=== PATIENT | female | born 1965 | race Caucasian/White ===

== ENCOUNTER 2019-06-16 16:15 | Emergency (ER) | payer OTHER, SELFPAY ==
[2019-06-16 16:35] VITALS: BP 164/118; PULSE 75; RESP 17; TEMP 36.7; O2SAT 95; BMI 48.2
--- NOTE | 2019-06-16 16:48 | ED_ITS ---
Entered by Sil Barrera, acting as scribe for Edgar Nelson MD, [facility] [place] Jun 16, 2019 16:15 HPI - Neuro Symptoms/Deficit General: Chief Complaint: Neuro Symptoms/Deficit Stated Complaint: NUMB RIGHT FACE Time Seen by Provider: 06/16/19 16:47 Source: patient Mode of arrival: wheelchair Limitations: no limitations History of Present Illness: HPI Narrative: 54 yo Female presents to ED with complaint of right side numbness and blurred vision. Pt states that she has had eye problems for a couple of days. Pt states at about 1430 today she could only see out of the left side and on the right side she could only see squiggly lines. Pt states that she now has some numbness around her right eye. Pt states that she took an aspirin right away. Pt states that she has been sick and taking Zpak and steroids. Pt states that she took her last doses of both medications yesterday. Pt states that she has still had some coughing and congestion. Onset (ago): day(s) Location: right face History of same: No Severity: mild Quality: numb Relieving factors: time Exacerbating factors: none Context: gradual onset On Anticoagulants: No Associated symptoms: Reports chest pain, cough, headache(s) and short of breath; Deny fevers/chills, nausea or vomiting Treatments Prior to Arrival: Aspirin Review of Systems General: Reports: 10 or more systems reviewed and unremarkable except in HPI and below Const: Denies: fever, chills or body aches Eyes: Reports: blurry vision; Denies: change in vision or blind spots ENMT: Denies: throat pain, enlarged tonsils, painful swallowing, hoarseness, mouth pain or swelling of lips/tongue Card: Reports: chest pain Resp: Denies: shortness of breath, productive cough or non-productive cough GI: Denies: abdominal pain, nausea or vomiting : Denies: flank pain, difficulty urinating, painful urination, urinary frequency, urinary urgency or urinary hesitancy Musc: Reports: extremity pain (left shoulder), joint pain (left shoulder) and limited range of motion; Denies: neck pain, back pain or extremity swelling Skin/Breast: Denies: rash, itching or redness Neuro: Reports: headache; Denies: numbness in extremities or weakness in extremities Endo: Denies: excessive urination, excessive thirst or tired all the time PFSH ED PFSH: Statuses (acute, chronic, etc) shown below reflect problem list status as previously entered and may not be historically accurate Social History Smoking and tobacco status: never smoked Alcohol intake: current Alcohol intake frequency: holidays/special occasions only NIH stroke score NIHSS: Level Of Consciousness - 1a: 0 Level Of Consciousness Questions - 1b: Both Correct Level Of Consciousness Commands - 1c: Both Correct Best Gaze - 2: Normal Visual Lutz - 3: No Visual Loss Facial Palsy - 4: Normal Motor Arm Right - 5: No Drift Motor Arm Left - 5: No Drift Motor Leg Right - 6: No Drift Motor Leg Left - 6: No Drift Limb Ataxia - 7: Absent Sensory - 8: Mild To Moderate Loss Best Language - 9: No Aphasia Dysarthia - 10: Normal Extinction And Inattention - 11: 0 Score: Total Score: 1 Physical Exam Const: COMMON NORMALS: no apparent distress, average body habitus, oriented x3, no limitations, healthy appearing, alert and well nourished HENMT: COMMON NORMALS: normocephalic, head/scalp atraumatic and moist oral mucous membranes HEAD & SCALP: normocephalic and atraumatic Eye: COMMON NORMALS: PERRL, EOMs intact bilaterally, conjunctivae normal and no scleral icterus CONJUNCTIVA: Yes conjunctivae normal PUPIL: Yes PERRL Neck/C-Spine: COMMON NORMALS: full ROM, supple, no meningeal signs, no JVD and no carotid bruits Chest: COMMONS NORMALS: inspection of chest normal and palpation of chest normal Resp: COMMON NORMALS: normal respiratory effort, no retractions, no use of accessory muscles, clear to auscultation bilaterally and percussion normal AUSCULTATION: clear to auscultation bilaterally PERCUSSION: percussion normal Cardio: COMMON NORMALS: no JVD, regular rate, regular rhythm, S1 normal heart sound, S2 normal heart sound, no gallops, no clicks, no murmurs, no rub and peripheral pulses 2+ throughout RATE: regular rate RHYTHM: regular rhythm HEART SOUNDS: S1 normal and S2 normal PERIPHERAL PULSES: pulses 2+ throughout GI: COMMON NORMALS: normal to inspection, nondistended, normoactive bowel sounds, soft to palpation, non-tender, no hepatosplenomegaly, no masses and no bruits PALPATION: Yes soft and Yes no hepatosplenomegaly : COMMON NORMALS: Yes no CVA tenderness BLADDER/KIDNEY EXAM: Yes no CVA tenderness Back/Pelvis: COMMON NORMALS: no CVA tenderness Extremity: COMMON NORMALS: normal to inspection, full ROM, normal capillary refill, no calf tenderness and no pedal edema Neuro: COMMON NORMALS: oriented x3 SENSORIUM/ORIENTATION: Yes alert MENINGEAL SIGNS: Yes no meningeal signs Skin: COMMON NORMALS: no rashes or lesions noted, no wounds, skin turgor normal, no jaundice, no petechiae and no mottling GENERAL SKIN EXAM: no rashes or lesions noted and turgor normal Course Vital Signs: Vital signs: Vital Signs Temperature 98.1 F 06/16/19 16:35 Pulse Rate 75 06/16/19 16:35 Respiratory Rate 17 06/16/19 16:35 Blood Pressure 164/118 06/16/19 16:35 Pulse Oximetry 95 06/16/19 16:35 MDM - Neuro Symptoms/Deficit MDM Narrative: Medical decision making narrative: 54-year-old female patient who presented with left-sided facial numbness. She had a headache at the time. NIH score was 1. Low. No indication for TPA. Examination is not suggestive of a CVA. Head CT negative. Labs unremarkable. Symptoms resolved with resolution of her headache. She is discharged home with no further management. She is to follow-up with her primary care provider. Lab Data: Labs: Lab Results 06/16/19 06/16/19 06/16/19 Range/Units 16:54 16:59 16:59 WBC 12.4 H (4.0-10.0) 10^3/ uL RBC 5.26 (4.1-5.3) 10^6/u L Hgb 14.4 (11.5-15.3) g/dL Hct 46.0 (37.0-47.0) % MCV 87.5 (81-99) fL MCH 27.4 L (28.0-34.0) pg MCHC 31.3 (30.0-36.0) g/dL RDW 14.6 (12.1-15.1) % Plt Count 336 (130-400) 10^3/c mm MPV 8.9 (7.4-10.4) fL Neut % (Auto) 64.9 % Lymph % (Auto) 24.8 % [place] % (Auto) 7.1 % Eos % (Auto) 1.6 % Baso % (Auto) 0.5 % Neut # (Auto) 8.1 H (1.8-7.7) 10^3/u L Lymph # (Auto) 3.1 (0.8-4.8) 10^3/u L [place] # (Auto) 0.9 (0.2-0.9) 10^3/u L Eos # (Auto) 0.2 (0.0-0.8) 10^3/u L Baso # (Auto) 0.1 (0.0-0.1) 10^3/u L Nucleated RBC % (a uto) 0 % Nucleated RBCs # 0.0 /100WBC PT 12.90 (10.5-13.3) SECO NDS INR 0.94 (0.8-1.2) APTT 27.6 (23.9-36.7) SECO NDS Sodium (136-145) mmol/L Potassium (3.5-5.1) mmol/L Chloride (98-107) mmol/L Carbon Dioxide (22-29) mmol/L Anion Gap (5-19) BUN (6-20) mg/dL Creatinine (0.5-0.9) mg/dL GFR Calculation (90-130) mL/min Glucose (74-109) mg/dL POC Glucose 101 (70-110) mg/dL Calcium (8.5-10.5) mg/dL Total Bilirubin (0.15-1.2) mg/dL AST (0-32) U/L ALT (0-33) U/L Alkaline Phosphata se (35-105) IU/L Total Protein (6.6-8.7) g/dL Albumin (3.5-5.2) g/dL Globulin (1.3-4.6) g/dL Urine Color (Yellow) Urine Appearance (CLEAR) Urine pH (5-7) Ur Specific Gravit y (1.005-1.030) Urine Protein (Negative) Urine Glucose (UA) (Normal) Urine Ketones (Negative) Urine Occult Blood (Negative) Urine Nitrate (Negative) Urine Bilirubin (NEGATIVE) Urine Urobilinogen (Negative) mg/dL Ur Leukocyte Farzana ase (Negative) Urine Opiates Scre en (Negative) ng/mL Ur Barbiturates Sc reen (Negative) ng/mL Ur Phencyclidine S crn (Negative) ng/mL Ur Amphetamines Sc reen (Negative) ng/mL U Benzodiazepines Scrn (Negative) ng/mL Urine Cocaine Scre en (Negative) ng/mL U Marijuana (THC) Screen (Negative) ng/mL 06/16/19 06/16/19 06/16/19 Range/Units 16:59 18:06 18:06 WBC (4.0-10.0) 10^3/ uL RBC (4.1-5.3) 10^6/u L Hgb (11.5-15.3) g/dL Hct (37.0-47.0) % MCV (81-99) fL MCH (28.0-34.0) pg MCHC (30.0-36.0) g/dL RDW (12.1-15.1) % Plt Count (130-400) 10^3/c mm MPV (7.4-10.4) fL Neut % (Auto) % Lymph % (Auto) % [place] % (Auto) % Eos % (Auto) % Baso % (Auto) % Neut # (Auto) (1.8-7.7) 10^3/u L Lymph # (Auto) (0.8-4.8) 10^3/u L [place] # (Auto) (0.2-0.9) 10^3/u L Eos # (Auto) (0.0-0.8) 10^3/u L Baso # (Auto) (0.0-0.1) 10^3/u L Nucleated RBC % (a uto) % Nucleated RBCs # /100WBC PT (10.5-13.3) SECO NDS INR (0.8-1.2) APTT (23.9-36.7) SECO NDS Sodium 142 (136-145) mmol/L Potassium 4.0 (3.5-5.1) mmol/L Chloride 103 (98-107) mmol/L Carbon Dioxide 28 (22-29) mmol/L Anion Gap 15.0 (5-19) BUN 17 (6-20) mg/dL Creatinine 0.8 (0.5-0.9) mg/dL GFR Calculation 75.0 L (90-130) mL/min Glucose 104 (74-109) mg/dL POC Glucose (70-110) mg/dL Calcium 9.7 (8.5-10.5) mg/dL Total Bilirubin 0.2 (0.15-1.2) mg/dL AST 18 (0-32) U/L ALT 25 (0-33) U/L Alkaline Phosphata se 89 (35-105) IU/L Total Protein 7.8 (6.6-8.7) g/dL Albumin 4.3 (3.5-5.2) g/dL Globulin 3.5 (1.3-4.6) g/dL Urine Color Yellow (Yellow) Urine Appearance Clear (CLEAR) Urine pH 5 (5-7) Ur Specific Gravit y 1.020 (1.005-1.030) Urine Protein Neg (Negative) Urine Glucose (UA) Norm (Normal) Urine Ketones Negative (Negative) Urine Occult Blood Neg (Negative) Urine Nitrate Negative (Negative) Urine Bilirubin Neg (NEGATIVE) Urine Urobilinogen Norm (Negative) mg/dL Ur Leukocyte Farzana ase Negative (Negative) Urine Opiates Scre en Negative (Negative) ng/mL Ur Barbiturates Sc reen Negative (Negative) ng/mL Ur Phencyclidine S crn Negative (Negative) ng/mL Ur Amphetamines Sc reen Negative (Negative) ng/mL U Benzodiazepines Scrn Negative (Negative) ng/mL Urine Cocaine Scre en Negative (Negative) ng/mL U Marijuana (THC) Screen Negative (Negative) ng/mL Imaging Data^: CT Head: Radiologist's impression: [address] [place] [address] CT Scan Report Signed Patient: Silvana Jacques #: [id number] : 1965Acct#:[id number] Age/Sex: 54 / FADM Date: 06/16/19 Loc: ERRoom/Bed: Attending Dr: Ordering Provider/Ordering MD: Edgar Nelson MD, [facility] [place] Date of Service: 06/16/19 Procedure(s): CT head wo con* [id number] Accession Number(s): [id number] Report Number: [id number] PROCEDURE INFORMATION: Exam: CT Head Without Contrast Exam date and time: 06/16/2019 4:48 PM Age: 54 years old Clinical indication: Numbness / parasthesia; Right; Patient HX: RT orbit numbness; Additional info: Facial numbness TECHNIQUE: Imaging protocol: Computed tomography of the head without contrast. Total DLP: 760.7 mGy-cm Radiation optimization: All CT scans at this facility use at least one of these dose optimization techniques: automated exposure control; mA and/or kV adjustment per patient size (includes targeted exams where dose is matched to clinical indication); or iterative reconstruction. Other technique: STROKE PROTOCOL was implemented. COMPARISON: CT head wo con* [id number] 02/22/2018 7:39 AM FINDINGS: Brain: There is no evidence of infarct, lopez-white matter differentiation is preserved. There is no hemorrhage or extra-axial collection. There is no mass. Ventricles: There is no hydrocephalus. Bones/joints: Unremarkable. No acute fracture. Sinuses: There is minimal mucosal thickening in the sinuses. No air-fluid levels. Mastoid air cells: Visualized mastoid air cells are well aerated. Soft tissues: Unremarkable. CT/CT head wo con* [id number] IMPRESSION: No intracranial lesion or injury. No change from prior scan. ASSESSMENT: ASPECTS (Kylee Stroke Program Early CT Score) is 10 Radiation Dose CTDIVOL = (mGy): DLP = 760.7 (mGy-cm) Dictated By:Werner Cox MD Signed By:Werner Cox MDSigned Date/Time:06/16/191658 DD/ 57 EKG Data^: EKG 1: Attestation: I personally reviewed and interpreted this EKG as follows: EKG interpretation date: 06/16/19 EKG interpretation time: 17:35 Prior EKG tracings: not available for review Interpretation: Normal sinus rhythm. Heart rate 67. Left ventricular hypertrophy. No ST changes Discharge Plan Discharge Patient Disposition: Home, Self-Care Clinical Impression: Facial paresthesia Migraine Qualifiers: Migraine type: unspecified Status migrainosus presence: without status migrainosus Intractability: not intractable Qualified Code(s): G43.909 - Migraine, unspecified, not intractable, without status migrainosus Condition: Stable Prescriptions: Continued metoprolol tartrate 100 mg tablet 100 mg PO BID RF: 0 pantoprazole 40 mg tablet,delayed release (DR/EC) 40 mg PO DAILY RF: 0 Symbicort 80-4.5 mcg/actuation HFA aerosol inhaler 2 puff INHALATION BID PRN (Reason: Shortness Of Breath) RF: 0 alprazolam [Xanax] 0.25 mg tablet 0.25 mg PO DAILY PRN (Reason: anxiety) RF: 0 fluticasone propionate [Flonase Allergy Relief] 50 mcg/actuation spray,suspension 1 spray INTRANASAL QDAY PRN (Reason: Nasal Congestion) RF: 0 albuterol sulfate [ProAir HFA] 90 mcg/actuation HFA aerosol inhaler 2 puff INHALATION Q6H PRN (Reason: shortness of breath or wheezing) Qty: 8.5 RF: 0 aspirin 81 mg Tablet,Chewable 81 mg PO DAILY RF: 0 Discharge Orders: Discharge Order (Routine); Ordered 06/16/19 Ordered By: Edgar Nelson Referrals: Silverio Lala DO [Primary Care Provider] - 1-3 days Discharge Diet: Usual diet Discharge Activity: Resume usual activity Patient Instructions: Migraine Headache (ED), Paresthesia (ED) Activity Restrictions/Additional Instructions: Return for any new or worsening symptoms. Follow-up with your primary care provider within 3 days. Drink plenty of fluids to keep well-hydrated. Coding Level of Care Code ED [facility] Runner for Chg Fwd Exam Problem Focused The documentation recorded by the Bruce perez Carmen, accurately reflects the service I personally performed and the decisions made by Omar ndiaye Adegoke I, MD, [facility] [place] Jun 16, 2019 16:15
--- NOTE | 2019-06-16 17:02 | ECG_ITS ---
Measurements Intervals [place] Rate: 67 P: 24 [place]: 199 QRS: -11 QRSD: 87 T: 20 QT: 382 QTc: 403 SINUS RHYTHM VOLTAGE CRITERIA FOR LVH [MEETS CRITERIA IN ONE OF: R(aVL), S(V1), R(V5), R (V5/V6)+S(V1)] POSSIBLE ANTERIOR MYOCARDIAL INFARCTION , OF INDETERMINATE AGE [30 ms Q WAVE IN V3/V4, OR R < 0.2 mV IN V4] INFERIOR MYOCARDIAL INFARCTION , PROBABLY OLD [40+ ms Q WAVE AND/OR ST/T ABNORMALITY IN II/aVF] Compared to ECG 08/21/2018 03:34:27 No significant changes Electronically Signed On 06-17-2019 16:20:58 RESTAURANT INSPECTOR by Willian Sagastume M.D. [email or web address]
[2019-06-16 17:13] LABS: Basophils # 0.1 10^3/uL (0.0-0.1); Basophils % 0.5 %; Eosinophils # 0.2 10^3/uL (0.0-0.8); Eosinophils % 1.6 %; Hemoglobin 14.4 g/dL (11.5-15.3); Lymphocytes # 3.1 10^3/uL (0.8-4.8); Lymphocytes % 24.8 %; Mean Corpuscular HGB Conc 31.3 g/dL (30.0-36.0); Mean Corpuscular Hemoglobin 27.4 pg (28.0-34.0); Mean Corpuscular Volume 87.5 fL (81-99); Mean Platelet Volume 8.9 fL (7.4-10.4); Monocytes # 0.9 10^3/uL (0.2-0.9); Monocytes % 7.1 %; Neutrophils # 8.1 10^3/uL (1.8-7.7); Neutrophils % 64.9 %; Nucleated Red Blood Cells % 0 %; Platelet Count 336 10^3/cmm (130-400); Red Blood Count 5.26 10^6/uL (4.1-5.3); Red Cell Distribution Width 14.6 % (12.1-15.1); White Blood Count 12.4 10^3/uL (4.0-10.0)
[2019-06-16 17:30] LABS: INR 0.94 (0.8-1.2)
[2019-06-16 17:31] LABS: Partial Thromboplastin Time 27.6 SECONDS (23.9-36.7)
[2019-06-16 17:34] LABS: Alanine Aminotransferase 25 U/L (0-33); Albumin Level 4.3 g/dL (3.5-5.2); Alkaline Phosphatase 89 IU/L (35-105); Aspartate Amino Transferase 18 U/L (0-32); Blood Urea Nitrogen 17 mg/dL (6-20); Calcium 9.7 mg/dL (8.5-10.5); Carbon Dioxide 28 mmol/L (22-29); Chloride 103 mmol/L (98-107); Globulin 3.5 g/dL (1.3-4.6); Glucose 104 mg/dL (74-109); Sodium 142 mmol/L (136-145); Total Bilirubin 0.2 mg/dL (0.15-1.2); Total Protein 7.8 g/dL (6.6-8.7)
[2019-06-16 18:14] LABS: Glucose Point of Care 101 mg/dL (70-110)
[2019-06-16 18:16] LABS: Add Urine Microscopic? NO
[2019-06-16 18:21] LABS: Urine Appearance Clear (CLEAR); Urine Color Yellow (Yellow); pH Urine 5 (5-7)
[2019-06-16 18:22] LABS: Bilirubin Urine Neg (NEGATIVE); Blood Urine Neg (Negative); Glucose Urine UA Norm (Normal); Ketones Urine Negative (Negative); Leukocyte Esterase Urine Negative (Negative); Nitrate Urine Negative (Negative); Protein Urine Neg (Negative); Urobilinogen Urine Norm (Negative)
[2019-06-16 18:59] LABS: Amphetamines Screen Urine Negative (Negative); Barbiturates Screen Urine Negative (Negative); Benzodiazepines Screen Urine Negative (Negative); Cocaine Screen Urine Negative (Negative); Opiate Screen Urine Negative (Negative); PCP Screen Urine Negative (Negative); THC Screen Urine Negative (Negative)
[2019-06-16 19:30] VITALS: BP 147/91; PULSE 77; RESP 20; O2SAT 96
[2019-06-16 21:45] VITALS: BP 147/91; PULSE 77; RESP 20; O2SAT 96
== END 2019-06-16 21:35 | disposition home or self-care (01) ==
PROVIDERS: Emergency Provider Family Medicine; Family Provider Electrodiagnostic Medicine; PCP Electrodiagnostic Medicine
DX: R20.2 Paresthesia of skin (principal); G43.909 Migraine, unspecified, not intractable, without status migrainosus; Z79.82 Long term (current) use of aspirin
CPT/HCPCS: 36416; 70450; 80053; 80307; 81003; 82962; 85025; 85610; 85730; 93005; 99283; A9270

== ENCOUNTER 2019-06-21 17:51 | Emergency (ER) | payer OTHER, SELFPAY ==
[2019-06-21 17:58] VITALS: BP 188/116; PULSE 78; RESP 16; TEMP 36.8; O2SAT 97; BMI 48.6
--- NOTE | 2019-06-21 18:02 | XR_ITS ---
WS: [id number] PORTABLE CHEST HISTORY: Chest pain and pressure for one day. COMPARISON: 06/14/2018 Benign granuloma LEFT upper lobe. Lungs are clear. Normal vasculature. No pleural effusion or pneumot horax. Cardiac size: Normal. Mediastinum/Aorta: Normal mediastinum. No osseous abnormality seen. XR/XR chest 1V portable [id number] IMPRESSION: Unremarkable portable chest.
--- NOTE | 2019-06-21 18:02 | ECG_ITS ---
Measurements Intervals [place] Rate: 90 P: 29 [place]: 183 QRS: -24 QRSD: 91 T: 43 QT: 330 QTc: 405 SINUS RHYTHM BORDERLINE LEFT AXIS DEVIATION [QRS AXIS < -20] VOLTAGE CRITERIA FOR LVH [MEETS CRITERIA IN ONE OF: R(aVL), S(V1), R(V5), R(V5/V6) +S(V1)] Compared to ECG 06/16/2019 17:35:07 Myocardial infarct finding no longer present Electronically Signed On 06-22-2019 16:29:05 WAITER/WAITRESS HEAD by Carlyle Guerin M.D. [email or web address]
[2019-06-21 18:52] LABS: Basophils # 0.1 10^3/uL (0.0-0.1); Basophils % 0.7 %; Eosinophils # 0.3 10^3/uL (0.0-0.8); Eosinophils % 3.3 %; Hematocrit 45.8 % (37.0-47.0); Hemoglobin 14.4 g/dL (11.5-15.3); Lymphocytes # 2.5 10^3/uL (0.8-4.8); Lymphocytes % 29.8 %; Mean Corpuscular HGB Conc 31.4 g/dL (30.0-36.0); Mean Corpuscular Hemoglobin 27.6 pg (28.0-34.0); Mean Corpuscular Volume 87.7 fL (81-99); Mean Platelet Volume 9.1 fL (7.4-10.4); Monocytes # 0.6 10^3/uL (0.2-0.9); Monocytes % 6.6 %; Neutrophils % 58.9 %; Nucleated Red Blood Cells % 0 %; Platelet Count 308 10^3/cmm (130-400); Red Blood Count 5.22 10^6/uL (4.1-5.3); Red Cell Distribution Width 14.6 % (12.1-15.1); White Blood Count 8.5 10^3/uL (4.0-10.0)
[2019-06-21 18:59] LABS: Alanine Aminotransferase 19 U/L (0-33); Albumin Level 4.5 g/dL (3.5-5.2); Alkaline Phosphatase 87 IU/L (35-105); Anion Gap 13.6 (5-19); Aspartate Amino Transferase 15 U/L (0-32); Blood Urea Nitrogen 10 mg/dL (6-20); Calcium 10.2 mg/dL (8.5-10.5); Carbon Dioxide 29 mmol/L (22-29); Chloride 100 mmol/L (98-107); Globulin 3.1 g/dL (1.3-4.6); Glomerular Filtration Rate 87.5 mL/min (90-130); Glucose 107 mg/dL (65-115); Potassium 4.6 mmol/L (3.5-5.1); Sodium 138 mmol/L (136-145); Total Bilirubin 0.2 mg/dL (0.15-1.2); Total Protein 7.6 g/dL (6.6-8.7); Troponin(5th) Baseline 7 ng/mL (0-10)
--- NOTE | 2019-06-21 19:22 | ED_ITS ---
Entered by Rosa Maria Spain, acting as scribe for Joan Hays MD Jun 21, 2019 17:51 HPI - Chest Pain General: Chief Complaint: Chest Pain Stated Complaint: chest pressure Time Seen by Provider: 06/21/19 19:14 Source: patient Mode of arrival: ambulatory History of Present Illness: HPI narrative: 54 y/o female presents to the ED with complaint of chest pressure. Pt states this episode began around 1400 today but she has had intermittent episodes since Wednesday. Pt states she was seen by Dr. Francis and he sent her here for a cardiac workup. Pt denies cardiac hx. MD complaint: chest pain Timing of current episode: episodic Prior episodes: Yes Pain location: epigastric Severity: mild Quality: heaviness Associated symptoms: Deny abdominal pain, dyspnea, fever(s), nausea or vomiting Review of Systems Const: Denies: fever, chills, body aches or change in appetite Eyes: Denies: blurry vision or eye discomfort ENMT: Denies: throat pain or dental pain Card: Reports: chest pain (pressure) Resp: Denies: shortness of breath GI: Reports: heartburn/indigestion; Denies: abdominal pain, nausea, vomiting or diarrhea : Denies: painful urination Musc: Denies: neck pain or back pain Skin/Breast: Denies: rash Neuro: Denies: headache Psych: Denies: depression Singh/Lymph: Denies: easy bruising All/Imm: Denies: hives PFSH ED PFSH: Statuses (acute, chronic, etc) shown below reflect problem list status as previously entered and may not be historically accurate Social History Smoking and tobacco status: never smoked Alcohol intake: current Alcohol intake frequency: holidays/special occasions only Physical Exam Const: COMMON NORMALS: no apparent distress and oriented x3 GENERAL APPEARANCE: cooperative NUTRITIONAL APPEARANCE: obese HENMT: COMMON NORMALS: normocephalic and head/scalp atraumatic HEAD & SCALP: normocephalic and atraumatic Eye: COMMON NORMALS: PERRL and EOMs intact bilaterally PUPIL: Yes PERRL Neck/C-Spine: COMMON NORMALS: full ROM and supple Chest: COMMONS NORMALS: inspection of chest normal and palpation of chest normal Resp: COMMON NORMALS: normal respiratory effort, no retractions, no use of accessory muscles and clear to auscultation bilaterally AUSCULTATION: clear to auscultation bilaterally Cardio: COMMON NORMALS: regular rate, regular rhythm and no murmurs RATE: regular rate RHYTHM: regular rhythm GI: COMMON NORMALS: normal to inspection, nondistended, normoactive bowel sounds, soft to palpation, non-tender and no masses PALPATION: Yes soft Extremity: COMMON NORMALS: normal to inspection and full ROM Neuro: COMMON NORMALS: oriented x3, moves all extremities and no focal motor deficits Psych: COMMON NORMALS: mental status grossly normal, thought process normal and cooperative THOUGHT PROCESS: normal thought process Skin: COMMON NORMALS: no rashes or lesions noted and no wounds GENERAL SKIN EXAM: no rashes or lesions noted Course Vital Signs: Vital signs: Vital Signs Temperature 97.8 F 06/21/19 19:32 Pulse Rate 83 06/21/19 22:00 Respiratory Rate 21 H 06/21/19 22:00 Blood Pressure 145/98 06/21/19 22:00 Pulse Oximetry 95 06/21/19 22:00 MDM - Chest Pain MDM Narrative: Medical decision making narrative: Patient presents here with chest pain that is atypical in nature. Patient's initial and repeat troponin here are negative. Patient CT scan shows no signs of pulmonary embolism. Patient is well-appearing here and I feel she is stable for discharge. She is to follow-up with her primary care doctor in 3 to 5 days and return to the ER if worsening. Lab Data: Labs: Lab Results 06/21/19 06/21/19 06/21/19 Range/Units 18:32 18:32 18:32 WBC 8.5 (4.0-10.0) 10^3/ uL RBC 5.22 (4.1-5.3) 10^6/u L Hgb 14.4 (11.5-15.3) g/dL Hct 45.8 (37.0-47.0) % MCV 87.7 (81-99) fL MCH 27.6 L (28.0-34.0) pg MCHC 31.4 (30.0-36.0) g/dL RDW 14.6 (12.1-15.1) % Plt Count 308 (130-400) 10^3/c mm MPV 9.1 (7.4-10.4) fL Neut % (Auto) 58.9 % Lymph % (Auto) 29.8 % Brooke % (Auto) 6.6 % Eos % (Auto) 3.3 % Baso % (Auto) 0.7 % Neut # (Auto) 5.0 (1.8-7.7) 10^3/u L Lymph # (Auto) 2.5 (0.8-4.8) 10^3/u L Brooke # (Auto) 0.6 (0.2-0.9) 10^3/u L Eos # (Auto) 0.3 (0.0-0.8) 10^3/u L Baso # (Auto) 0.1 (0.0-0.1) 10^3/u L Nucleated RBC % (a uto) 0 % Nucleated RBCs # 0.0 /100WBC Sodium 138 (136-145) mmol/L Potassium 4.6 (3.5-5.1) mmol/L Chloride 100 (98-107) mmol/L Carbon Dioxide 29 (22-29) mmol/L Anion Gap 13.6 (5-19) BUN 10 (6-20) mg/dL Creatinine 0.7 (0.5-0.9) mg/dL GFR Calculation 87.5 L (90-130) mL/min Glucose 107 (65-115) mg/dL Calcium 10.2 (8.5-10.5) mg/dL Total Bilirubin 0.2 (0.15-1.2) mg/dL AST 15 (0-32) U/L ALT 19 (0-33) U/L Alkaline Phosphata se 87 (35-105) IU/L Troponin T Baselin e 7 (0-10) ng/mL Troponin T 120 Min [place] (0-10) ng/mL Delta Troponin T (0-10) ABS# Total Protein 7.6 (6.6-8.7) g/dL Albumin 4.5 (3.5-5.2) g/dL Globulin 3.1 (1.3-4.6) g/dL 06/21/19 Range/Units 19:55 WBC (4.0-10.0) 10^3/ uL RBC (4.1-5.3) 10^6/u L Hgb (11.5-15.3) g/dL Hct (37.0-47.0) % MCV (81-99) fL MCH (28.0-34.0) pg MCHC (30.0-36.0) g/dL RDW (12.1-15.1) % Plt Count (130-400) 10^3/c mm MPV (7.4-10.4) fL Neut % (Auto) % Lymph % (Auto) % Brooke % (Auto) % Eos % (Auto) % Baso % (Auto) % Neut # (Auto) (1.8-7.7) 10^3/u L Lymph # (Auto) (0.8-4.8) 10^3/u L Brooke # (Auto) (0.2-0.9) 10^3/u L Eos # (Auto) (0.0-0.8) 10^3/u L Baso # (Auto) (0.0-0.1) 10^3/u L Nucleated RBC % (a uto) % Nucleated RBCs # /100WBC Sodium (136-145) mmol/L Potassium (3.5-5.1) mmol/L Chloride (98-107) mmol/L Carbon Dioxide (22-29) mmol/L Anion Gap (5-19) BUN (6-20) mg/dL Creatinine (0.5-0.9) mg/dL GFR Calculation (90-130) mL/min Glucose (65-115) mg/dL Calcium (8.5-10.5) mg/dL Total Bilirubin (0.15-1.2) mg/dL AST (0-32) U/L ALT (0-33) U/L Alkaline Phosphata se (35-105) IU/L Troponin T Baselin e (0-10) ng/mL Troponin T 120 Min [place] 7.76 (0-10) ng/mL Delta Troponin T 0.76 (0-10) ABS# Total Protein (6.6-8.7) g/dL Albumin (3.5-5.2) g/dL Globulin (1.3-4.6) g/dL Imaging Data^: CXR: Attestation: I personally reviewed and interpreted this imaging study as follows: My impression: no acute abnormality CT Chest: Radiologist's impression: Signed Patient: Silvana Jacques Unit #: [id number] : [id number] Age/Sex: 54 / F ADM Date: 06/21/19 Loc: ER Room/Bed: Attending Dr: Ordering Provider/Ordering MD: Joan Hays MD Date of Service: 06/21/19 Procedure(s): CT angio chest PE protcl [id number] Accession Number(s): [id number] Report Number: [id number] PROCEDURE INFORMATION: Exam: CT Angiography Chest With Contrast Exam date and time: 06/21/2019 9:16 PM Age: 54 years old Clinical indication: Chest pain; Type not specified; Additional info: Cp TECHNIQUE: Imaging protocol: Computed tomographic angiography of the chest with intravenous contrast. 3D rendering: MIP and/or 3D reconstructed images were created by the technologist. Total DLP: 491.83 mGy-cm Radiation optimization: All CT scans at this facility use at least one of these dose optimization techniques: automated exposure control; mA and/or kV adjustment per patient size (includes targeted exams where dose is matched to clinical indication); or iterative reconstruction. Contrast material: OMNI; Contrast volume: 95 ml; Contrast route: IV; COMPARISON: CT chest w con* [id number] 02/24/2018 7:29 PM FINDINGS: Limitations: Opacification of the pulmonary arteries is suboptimal due to timing of contrast injection. Pulmonary arteries: There is no evidence of filling defects within the pulmonary arterial circulation to suggest pulmonary embolism. Aorta: Unremarkable. No aortic aneurysm. No aortic dissection. Lungs: There is calcified granuloma in the left lung. Pleural space: Unremarkable. No pneumothorax. No pleural effusion. Heart: Unremarkable. No cardiomegaly. No pericardial effusion. Lymph nodes: There is calcified left hilar lymph node in keeping with old granulomatous disease. Bones/joints: Unremarkable. No acute fracture. Soft tissues: Unremarkable. CT/CT angio chest PE protcl [id number] IMPRESSION: No evidence of pulmonary embolism. EKG Data^: EKG 1: EKG interpretation date: 06/21/19 EKG interpretation time: 18:07 Interpretation: nsr hr [address] or t wave abnormalities qrs 91 [id number] EKG 2: Attestation: I personally reviewed and interpreted this EKG as follows: EKG interpretation date: 06/21/19 EKG interpretation time: 19:38 Interpretation: nsr hr [address] or t wave abnormailties qrs 92 qtc 388 Discharge Plan Discharge Patient Disposition: Home, Self-Care Clinical Impression: Chest pain Qualifiers: Chest pain type: unspecified Qualified Code(s): R07.9 - Chest pain, unspecified Condition: Stable Prescriptions: No Action metoprolol tartrate 100 mg tablet 100 mg PO BID RF: 0 pantoprazole 40 mg tablet,delayed release (DR/EC) 40 mg PO DAILY RF: 0 Symbicort 80-4.5 mcg/actuation HFA aerosol inhaler 2 puff INHALATION BID PRN (Reason: Shortness Of Breath) RF: 0 alprazolam [Xanax] 0.25 mg tablet 0.25 mg PO DAILY PRN (Reason: anxiety) RF: 0 fluticasone propionate [Flonase Allergy Relief] 50 mcg/actuation spray,suspension 1 spray INTRANASAL QDAY PRN (Reason: Nasal Congestion) RF: 0 albuterol sulfate [ProAir HFA] 90 mcg/actuation HFA aerosol inhaler 2 puff INHALATION Q6H PRN (Reason: shortness of breath or wheezing) Qty: 8.5 RF: 0 aspirin 81 mg Tablet,Chewable 81 mg PO DAILY RF: 0 Discharge Orders: Discharge Order (Routine); Ordered 06/21/19 Ordered By: Joan Hays Referrals: Silverio Lala DO [Primary Care Provider] - 4-7 days Discharge Diet: Advance as tolerated Discharge Activity: Resume usual activity Patient Instructions: Abdominal Pain (ED) Discharge Date/Time: 06/21/19 22:31 Coding Level of Care Code ED Oil Well Pumper for Chg Fwd Exam Problem Focused The documentation recorded by the Grabiel perez Ashley, accurately reflects the service I personally performed and the decisions made by Lis ndiaye Korby, MD Jun 21, 2019 17:51
[2019-06-21 19:32] VITALS: BP 157/110; PULSE 72; RESP 18; TEMP 36.6; O2SAT 94
--- NOTE | 2019-06-21 19:34 | PC.NURSE ---
Introduced self to patient and initiated vital signs. Pt is A&O x 4 and agreeable. Pt states that the reason for the ER visit today is due to chest discomfort. Pt states that discomfort has been going on since Wednesday, but today it started at 1400. Reassured patient of needs and will continue to monitor.
--- NOTE | 2019-06-21 20:02 | ECG_ITS ---
Measurements Intervals [place] Rate: 75 P: 36 LA: 188 QRS: -16 QRSD: 92 T: 40 QT: 359 QTc: 402 SINUS RHYTHM VOLTAGE CRITERIA FOR LVH [MEETS CRITERIA IN ONE OF: R(aVL), S(V1), R(V5), R (V5/V6)+S(V1)] Compared to ECG 06/16/2019 17:35:07 Myocardial infarct finding no longer present Electronically Signed On 06-22-2019 16:35:35 [employer] APPLICATOR by Carlyle Guerin M.D. [email or web address]
[2019-06-21 20:23] LABS: Troponin 5 2HR 7.76 ng/mL (0-10); Troponin 5 2HR Delta 0.76 ABS# (0-10)
--- NOTE | 2019-06-21 20:44 | CTR_ITS ---
PROCEDURE INFORMATION: Exam: CT Angiography Chest With Contrast Exam date and time: 06/21/2019 9:16 PM Age: 54 years old Clinical indication: Chest pain; Type not specified; Additional info: Cp TECHNIQUE: Imaging protocol: Computed tomographic angiography of the chest with intravenous contrast. 3D rendering: MIP and/or 3D reconstructed images were created by the technologist. Total DLP: 491.83 mGy-cm Radiation optimization: All CT scans at this facility use at least one of these dose optimization techniques: automated exposure control; mA and/or kV adjustment per patient size (includes targeted exams where dose is matched to clinical indication); or iterative reconstruction. Contrast material: OMNI; Contrast volume: 95 ml; Contrast route: IV; COMPARISON: CT chest w con* [id number] 02/24/2018 7:29 PM FINDINGS: Limitations: Opacification of the pulmonary arteries is suboptimal due to timing of contrast injection. Pulmonary arteries: There is no evidence of filling defects within the pulmonary arterial circulation to suggest pulmonary embolism. Aorta: Unremarkable. No aortic aneurysm. No aortic dissection. Lungs: There is calcified granuloma in the left lung. Pleural space: Unremarkable. No pneumothorax. No pleural effusion. Heart: Unremarkable. No cardiomegaly. No pericardial effusion. Lymph nodes: There is calcified left hilar lymph node in keeping with old granulomatous disease. Bones/joints: Unremarkable. No acute fracture. Soft tissues: Unremarkable. CT/CT angio chest PE protcl [id number] IMPRESSION: No evidence of pulmonary embolism. Radiation Dose CTDIVOL = (mGy): DLP = 491.83 (mGy-cm)
[2019-06-21 21:00] VITALS: BP 145/98; PULSE 80; RESP 19; O2SAT 94
[2019-06-21] MEDS: ketorolac 30 mg/mL INJ IVP (21:20)
[2019-06-21] MEDS: iohexol 350 mg/mL 100 mL Btl 95 ML IV (21:36)
[2019-06-21 22:00] VITALS: BP 145/98; PULSE 83; RESP 21; O2SAT 95
== END 2019-06-21 22:31 | disposition home or self-care (01) ==
PROVIDERS: Emergency Provider Emergency Medicine; Family Provider Electrodiagnostic Medicine; PCP Electrodiagnostic Medicine
DX: R07.9 Chest pain, unspecified (principal); Z79.82 Long term (current) use of aspirin
CPT/HCPCS: 36415; 71045; 71275; 80053; 84484; 85025; 93005; 96374; 96375; 99283; 99284; J1885; Q9967

== ENCOUNTER 2020-01-25 20:00 | Outpatient (CLI) | payer OTHER, SELFPAY | END 2020-01-25 20:01 | disposition home or self-care (01) | LOC: SLEEP 01-26 09:10 | PROVIDERS: Family Provider Electrodiagnostic Medicine; PCP Electrodiagnostic Medicine; Visit Provider Electrodiagnostic Medicine | DX: G47.30 Sleep apnea, unspecified (principal) | CPT/HCPCS: 95810 ==

== ENCOUNTER 2020-02-27 20:00 | Outpatient (CLI) | payer OTHER, SELFPAY | END 2020-02-27 20:01 | disposition home or self-care (01) | LOC: SLEEP 02-28 08:10 | PROVIDERS: Family Provider Electrodiagnostic Medicine; PCP Electrodiagnostic Medicine; Visit Provider Electrodiagnostic Medicine | DX: G47.33 Obstructive sleep apnea (adult) (pediatric) (principal) | CPT/HCPCS: 95811 ==

== ENCOUNTER 2020-04-26 10:54 | Outpatient (CLI) | payer OTHER, SELFPAY ==
--- NOTE | 2020-04-26 10:58 | MM_ITS ---
WS: [id number] BILATERAL SCREENING DIGITAL MAMMOGRAM WITH CAD HISTORY: SCREENING COMPARISON: 08/08/2018, 03/12/2017 and 08/24/2016 Bilateral CC and MLO views submitted. Computer aided detection analyzed. Breast composition: The breasts are heterogeneously dense, which may obscure small masses. No suspici ous masses, microcalcifications or architectural distortion. Asymmetries in the LEFT breast have decr eased in size since the most recent exam. No new or increasing asymmetries. MM/[place] [id number] IMPRESSION: BI-RADS: 2-Benign FOLLOW UP: 1 Year Follow-up
== END 2020-04-26 10:55 | disposition home or self-care (01) ==
LOC: RADSHAW 10:56
PROVIDERS: PCP Electrodiagnostic Medicine; Visit Provider Electrodiagnostic Medicine
DX: Z12.31 Encounter for screening mammogram for malignant neoplasm of breast (principal)
CPT/HCPCS: 77067

== ENCOUNTER 2020-05-27 08:25 | Outpatient (CLI) | payer OTHER, SELFPAY ==
--- NOTE | 2020-05-27 08:48 | MR_ITS ---
WS: [id number] MRI LUMBAR SPINE NONCONTRAST HISTORY: LUMBOSACRAL RADICULOPATHY AT L4, LEFT leg pain. COMPARISON: None available. TECHNIQUE: Sagittal and axial multisequence imaging is submitted. Very slight LEFT convex curvature of the lumbar spine and mild straightening. Mild disc desiccation from L2-3 and L4-5. No marrow edema or fractures. Conus terminates normally at L1. L1-L2: Normal. L2-L3: Mild annular disc bulge with very mild osteophytic ridging. There is very slight encroachment upon the ventral thecal sac and the lateral recesses but the disc bulging. No stenosis. L3-L4: Mild annular disc bulging and osteophytic ridging. Mild facet and ligamentum flavum hypertroph y. No significant stenosis. L4-L5: Mild annular disc bulge. There is a broad-based LEFT paracentral and LEFT foraminal disc protr usion contacting and displacing the LEFT L5 nerve root with mild narrowing of the LEFT foramen. L5-S1: Normal. MR/MR lumbar spine wo con* [id number] IMPRESSION: 1. Moderate-sized LEFT L4-5 disc protrusion contacts and displaces the LEFT L5 nerve root and extends into the LEFT foramen. 2. Otherwise no significant areas of stenosis or disc protrusions.
== END 2020-05-27 08:26 | disposition home or self-care (01) ==
LOC: RADWPI 08:28
PROVIDERS: PCP Electrodiagnostic Medicine; Visit Provider Physician Assistant
DX: M54.17 Radiculopathy, lumbosacral region (principal); M79.605 Pain in left leg; M51.26 Other intervertebral disc displacement, lumbar region
CPT/HCPCS: 72148

== ENCOUNTER → 2020-06-25 09:45 | Outpatient (BNVA) | payer OTHER, SELFPAY | PROVIDERS: PCP Physician Assistant; Visit Provider Orthopaedic Surgery | DX: M47.896 Other spondylosis, lumbar region (principal); M54.5 Low back pain | CPT/HCPCS: 72110 ==

== ENCOUNTER → 2020-07-24 09:28 | Outpatient (BNVA) | payer OTHER, SELFPAY | PROVIDERS: PCP Physician Assistant; Referring Provider Orthopaedic Surgery; Visit Provider Anesthesiology Pain Medicine | DX: M51.36 Other intervertebral disc degeneration, lumbar region (principal); M47.816 Spondylosis without myelopathy or radiculopathy, lumbar region; M54.16 Radiculopathy, lumbar region; M79.605 Pain in left leg | CPT/HCPCS: 99205 ==

== ENCOUNTER → 2020-07-31 13:56 | Outpatient (BNVA) | payer OTHER, SELFPAY | PROVIDERS: PCP Physician Assistant; Visit Provider Anesthesiology Pain Medicine | DX: M54.16 Radiculopathy, lumbar region (principal); M48.062 Spinal stenosis, lumbar region with neurogenic claudication | CPT/HCPCS: 64483; 64484; J1100; J3490 ==

== ENCOUNTER → 2021-04-18 09:57 | Outpatient (BNVA) | payer OTHER, SELFPAY | PROVIDERS: PCP Physician Assistant; Referring Provider Physician Assistant; Visit Provider Podiatrist Foot & Ankle Surgery | DX: M25.471 Effusion, right ankle (principal); M12.571 Traumatic arthropathy, right ankle and foot; S99.911D Unspecified injury of right ankle, subsequent encounter; X58.XXXD Exposure to other specified factors, subsequent encounter; M21.41 Flat foot [pes planus] (acquired), right foot | CPT/HCPCS: 73610 ==

== ENCOUNTER 2021-07-01 10:13 | Outpatient (CLI) | payer OTHER, SELFPAY ==
--- NOTE | 2021-07-01 10:24 | MM_ITS ---
WS: [id number] BILATERAL DIGITAL SCREENING MAMMOGRAPHY WITH CAD CLINICAL INFORMATION: SCREENING HISTORY: Screening mammogram. LEFT breast pain COMPARISON: April 26, 2020 TECHNIQUE: Bilateral CC and MLO views. FINDINGS: History of LEFT lumpectomy. Scattered fibroglandular densities bilaterally. Stable intramammary lymph nodes. Slightly spiculated asymmetric density subareolar LEFT breast measuring 12 mm. This is best seen on the MLO view. Recomme nd spot compression views and ultrasound. RIGHT breast is unremarkable. MM/[place] [id number] IMPRESSION: BI-RADS: 0-Incomplete: Need additional imaging evaluation FOLLOW UP: Need Additional Imaging Recommend LEFT breast diagnostic mammography and ultrasound.
== END 2021-07-01 10:14 | disposition home or self-care (01) ==
LOC: RADSHAW 10:19
PROVIDERS: PCP Physician Assistant; Visit Provider Physician Assistant
DX: Z12.31 Encounter for screening mammogram for malignant neoplasm of breast (principal)
CPT/HCPCS: 77067

== ENCOUNTER 2021-08-07 13:08 | Outpatient (CLI) | payer OTHER, SELFPAY ==
--- NOTE | 2021-08-07 13:12 | MM_ITS ---
WS: [id number] LEFT 3D TOMOSYNTHESIS DIGITAL MAMMOGRAPHY WITH CAD CLINICAL INFORMATION: LT BREAST ASYMMETR COMPARISON: July 01, 2021 TECHNIQUE: 5 views of the left breast were obtained. FINDINGS: Scattered fibroglandular densities of the left breast. Again seen is the asymmetric density deep to t he areola. No significant interval changes. Ultrasound is pending. ULTRASOUND BREAST LEFT TECHNIQUE: Ultrasound left breast focused area of concern. CLINICAL INFORMATION: LT BREAST ASYMMETRY COMPARISON: None. FINDINGS: Ultrasound LEFT breast at the nipple. Ductal ectasia at the areola. No intraductal lesions. Small ech ogenic lesion in the subcutaneous soft tissues at the areola likely small lipoma or hamartoma. This m easures approximately 5.1 x 6.2 x 4.0 mm. This is probably benign but recommend 6 month follow-up to confirm stability. MM/[place] [id number] IMPRESSION: BI-RADS: 3-Probably Benign FOLLOW UP: 6 Month Follow-up Recommend 6 month follow-up LEFT breast diagnostic mammography and ultrasound.
== END 2021-08-07 13:09 | disposition home or self-care (01) ==
PROVIDERS: PCP Physician Assistant; Visit Provider Physician Assistant
DX: N64.89 Other specified disorders of breast (principal)
CPT/HCPCS: 76642; 77061

== ENCOUNTER 2021-12-03 09:05 | Emergency (ER) | payer OTHER, SELFPAY ==
[2021-12-03 09:25] VITALS: BP 131/71; PULSE 114; RESP 18; O2SAT 97; BMI 52.7
--- NOTE | 2021-12-03 09:28 | XR_ITS ---
WS: [id number] XR sacrum coccyx min 2V [id number] REASON FOR EXAM: fall FINDINGS: Sacrum and coccyx are intact without evidence of acute fracture or dislocation. XR/XR sacrum coccyx min 2V [id number] IMPRESSION: No acute abnormality.
--- NOTE | 2021-12-03 09:28 | XR_ITS ---
WS: [id number] XR hip RT 2-3V wo/w pel* [id number] REASON FOR EXAM: fall with right hip pain FINDINGS: No fracture of the proximal right femur. Minimal change of osteoarthritis. Right and inferior pubic ramus intact. XR/XR hip RT 2-3V wo/w pel* [id number] IMPRESSION: No acute abnormality.
--- NOTE | 2021-12-03 09:31 | ED_ITS ---
HPI - Fall General: Chief Complaint: Fall Stated Complaint: Fell, Left Leg injury Time Seen by Provider: 12/03/21 09:21 History of Present Illness: Patient is a 56-year-old female comes to the ED with right leg pain after fall. Patient says she was at her house and slipped on some water and fell back landing on her right hip region. She is now having pain located in the right hip and tailbone region. She is unable to sit and put any weight on that right hip region. She rates the pain currently a 10 out of 10. She is able to move right leg, but endorses pain around her right buttock with range of motion. Denies any head trauma or loss of consciousness. Associated symptoms-after fall: Denies abdominal pain, chest pain, headache(s), hematuria or neck pain Review of Systems Const: Denies: fever(s), chills or fatigue Eyes: Denies: change in vision or eye discomfort ENMT: Denies: throat pain, odynophagia, nasal discharge or nasal congestion Card: Denies: chest pain, palpitations, edema, swelling of feet/ankles, dyspnea on exertion or orthopnea Resp: Denies: dyspnea, productive cough or non-productive cough GI: Denies: abdominal pain, nausea, vomiting, diarrhea, constipation or hematochezia : Denies: flank pain, dysuria or hematuria Musc: Reports: extremity pain (Right hip/right pelvic pain) and limited range of motion (Right hip); Denies: neck pain, back pain or extremity swelling Skin/Breast: Denies: rash or new lesions Neuro: Denies: headache(s), numbness in extremities or weakness in extremities [facility] ED PFSH: Medical History (Updated 12/03/21 @ 10:29 by RAMIRO Velez) Degenerative lumbar disc Lumbar stenosis with neurogenic claudication No pertinent family history Social History Smoking and tobacco status: never smoked Alcohol intake: current Alcohol intake frequency: holidays/special occasions o nly History of recent travel: No Physical Exam Const: COMMON NORMALS: patient oriented x3 and alert GENERAL APPEARANCE: cooperative HENMT: COMMON NORMALS: normocephalic HEAD & SCALP: normocephalic MOUTH: Normal oral and palatal mucosa present THROAT: posterior oropharynx normal and uvula midline Neck/C-Spine: COMMON NORMALS: supple GENERAL: Yes normal visual inspection Resp: COMMON NORMALS: normal respiratory effort, No retractions, No use of accessory muscles and clear to auscultation bilaterally AUSCULTATION: clear to auscultation bilaterally Cardio: COMMON NORMALS: regular rate, regular rhythm, S1 normal heart sound present, S2 normal heart sound present, No gallops present (Cardio), No clicks present (Cardio), No murmurs present (Cardio) and Peripheral pulses 2+ throughout RATE: regular rate RHYTHM: regular rhythm HEART SOUNDS: S1 normal heart sound present and S2 normal heart sound present PERIPHERAL PULSES: Peripheral pulses 2+ throughout GI: COMMON NORMALS: Normal to inspection, nondistended, normoactive bowel sounds present, Soft to palpation, non-tender and no masses PALPATION: Yes Soft to palpation : COMMON NORMALS: Yes no CVA tenderness BLADDER/KIDNEY EXAM: Yes no CVA tenderness Back/Pelvis: COMMON NORMALS: no CVA tenderness Extremity: NARRATIVE EXTREMITY EXAM: Right leg?no shortening or external rotation noted. Neurovascular tact distally. Mild tenderness to right buttock. Limited range of motion in right hip due to pain. GENERAL: Yes normal exam except as noted Neuro: COMMON NORMALS: patient oriented x3 and moves all extremities SENSORIUM/ORIENTATION: Yes alert Skin: GENERAL SKIN EXAM: dry skin Course Vital Signs: Vital signs: Vital Signs Pulse Rate 114 H 12/03/21 09:25 Respiratory Rate 18 12/03/21 10:35 Blood Pressure 131/71 12/03/21 09:25 Pulse Oximetry 97 12/03/21 10:35 MDM - Fall Medical Decision Making Patient is a 56-year-old female comes to the ED with right leg pain after fall. Patient says she was at her house and slipped on some water and fell back landing on her right hip region. She is now having pain located in the right hip and tailbone region. Vital stable. Exam is benign. X-ray of right hip and sacrum and coccyx showed no acute findings or fractures. She was diagnosed with right leg injury and was discharged home with some Celebrex, muscle relaxer and steroid. She is told to follow-up with her PCP in the next week for reevaluation. Return ED precautions given. She was discharged home with crutches to help with ambulation. Patient understood and agreed with plan. Lab Data Radiology Impressions Hip/Pelvis X-Ray 12/03/21 09:28 IMPRESSION: No acute abnormality. Sacrum and Coccyx X-Ray 12/03/21 09:28 IMPRESSION: No acute abnormality. Discharge Plan Discharge Patient Disposition: Home Clinical Impression: Right leg injury Condition: Stable Prescriptions: New cyclobenzaprine 5 mg tablet 5 mg PO BID PRN (Reason: muscle spasm) Qty: 20 0RF celecoxib 100 mg capsule 100 mg PO BID PRN (Reason: pain) Qty: 20 0RF Medrol ([place]) 4 mg tablets,dose pack See Rx Instructions .ROUTE .COMPLEX Qty: 21 0RF Rx Instructions: orally per package directions No Action pantoprazole 40 mg tablet,delayed release (DR/EC) 40 mg PO DAILY 0RF Symbicort 80-4.5 mcg/actuation HFA aerosol inhaler 2 puff INHALATION BID PRN (Reason: Shortness Of Breath) 0RF alprazolam [Xanax] 0.25 mg tablet 0.25 mg PO DAILY PRN (Reason: anxiety) 0RF fluticasone propionate [Flonase Allergy Relief] 50 mcg/actuation spray,suspension 1 spray INTRANASAL QDAY PRN (Reason: Nasal Congestion) 0RF albuterol sulfate [ProAir HFA] 90 mcg/actuation HFA aerosol inhaler 2 puff INHALATION Q6H PRN (Reason: shortness of breath or wheezing) Qty: 8.5 0RF sucralfate 1 gram tablet 1 g PO BID 0RF (DME) Spectrum AFO ankle brace See Rx Instructions .Route .MEDSUPPLY Qty: 1 0RF Rx Instructions: As directed aspirin 81 mg tablet,chewable 81 mg PO DAILY Qty: 90 3RF metoprolol tartrate 100 mg tablet 100 mg PO BID Qty: 180 3RF Discharge Orders: Discharge ED (Routine); Ordered 12/03/21 Ordered By: Alejandro Kwong Referrals: Doreen Frost PA [Primary Care Provider] - Discharge Diet: Regular Discharge Activity: Increase activity as tolerated Activity Restrictions/Additional Instructions: Follow-up with medical provider as directed in the next 5 to 7 days reevaluation. Rest, ice and elevate left leg. medications as prescribed. Return to the ER or your medical provider if condition worsens. Please read and understand discharge instructions. Thank you for choosing [facility] for your healthcare needs today. Please realize this is an emergency room and that we are providing you with a medical screening exam and this may not be complete and all inclusive of all the testing and or work up that you may need to determine your ailment or severity of your illness. It is very important that you follow up as instructed or that you return to the Emergency Department should you have concerns or if your condition changes or worsens in any way. Coding Level of Care Code ED Distributor Of Directories for Dang Fweryn Exam Comprehensive
[2021-12-03 09:39] VITALS: RESP 18
[2021-12-03] MEDS: morphine 4 mg/mL SDV 1 mL IM (09:39)
[2021-12-03 10:35] VITALS: RESP 18; O2SAT 97
[2021-12-03] MEDS: HYDROmorphone 1 mg/mL INJ 1 mL IM (10:35)
== END 2021-12-03 10:45 | disposition home or self-care (01) ==
PROVIDERS: Emergency Provider Physician Assistant; PCP Physician Assistant
DX: S89.91XA Unspecified injury of right lower leg, initial encounter (principal); Z79.82 Long term (current) use of aspirin; W01.0XXA Fall on same level from slipping, tripping and stumbling without subsequent striking against object, initial encounter
CPT/HCPCS: 72220; 73502; 96372; 99284; E0114; J1170; J2270

== ENCOUNTER 2021-12-31 03:03 | Emergency (ER) | payer OTHER, SELFPAY ==
[2021-12-31 03:05] VITALS: BMI 52.7
[2021-12-31 03:08] VITALS: BP 173/103; PULSE 69; RESP 16; TEMP 36.6; O2SAT 97
--- NOTE | 2021-12-31 03:11 | XRR_ITS ---
PROCEDURE INFORMATION: Exam: XR Chest Exam date and time: 12/31/2021 3:12 AM Age: 56 years old Clinical indication: Shortness of breath; Chest pressure; Patient HX: C/O chest pain with SOB. ; Additional info: Cp TECHNIQUE: Imaging protocol: Radiologic exam of the chest. Views: 1 view. COMPARISON: CR XR chest 2V* [id number] 02/12/2021 9:45 AM FINDINGS: Lungs: Unremarkable. No consolidation. Pleural spaces: Unremarkable. No pleural effusion. No pneumothorax. Heart/Mediastinum: Unremarkable. No cardiomegaly. Bones/joints: Unremarkable. XR/XR chest 1V portable [id number] IMPRESSION: No acute findings.
--- NOTE | 2021-12-31 03:12 | ECG_ITS ---
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 Measurements Intervals [place] Rate: 70 P: 29 MI: 188 QRS: 9 QRSD: 90 T: 66 QT: 374 QTc: 406 Interpretive Statements SINUS RHYTHM Compared to ECG 06/21/2019 19:38:35 Left ventricular hypertrophy no longer present Electronically Signed On 12-31-2021 17:17:54 CDT by Natanael Alberts M.D. [email or web address]
[2021-12-31] MEDS: hyDRALAzine 20 mg/mL INJ 1 mL 10 MG IVP (03:22)
--- NOTE | 2021-12-31 03:22 | ED_ITS ---
HPI - Chest Pain General: Chief Complaint: Chest Pain Stated Complaint: Chest Pain/SOB Time Seen by Provider: 12/31/21 03:15 Source: patient Mode of arrival: ambulatory Limitations: no limitations History of Present Illness: 56-year-old female who states that she has been having some dyspnea along with chest pain over the last week. States she had tested for COVID is negative started on antibiotics and steroids she is on her last day states that she woke up this morning with chest pressure along with shortness of breath states improved her pain is currently 2 out of 10. Associated symptoms: Reports dyspnea; Deny abdominal pain, fever(s), nausea or vomiting Review of Systems Const: Denies: fever(s), chills, body aches or change in appetite Eyes: Denies: blurry vision or eye discomfort ENMT: Denies: throat pain or dental pain Card: Reports: chest pain Resp: Reports: dyspnea GI: Denies: abdominal pain, nausea, vomiting or diarrhea : Denies: dysuria Musc: Denies: neck pain or back pain Skin/Breast: Denies: rash Neuro: Denies: headache(s) Psych: Denies: depression Singh/Lymph: Denies: easy bruising All/Imm: Denies: urticaria PFSH ED PFSH: Medical History Degenerative lumbar disc Lumbar stenosis with neurogenic claudication No pertinent family history Social History Smoking and tobacco status: never smoked Alcohol intake: current Alcohol intake frequency: holidays/special occasions only History of recent travel: No Physical Exam Const: COMMON NORMALS: no acute distress, patient oriented x3 and healthy appearing HENMT: COMMON NORMALS: normocephalic and atraumatic HEAD & SCALP: n ormocephalic and atraumatic Eye: COMMON NORMALS: Equal, round and reactive pupils present and EOMs intact bilaterally PUPIL: Yes Equal, round and reactive pupils present Neck/C-Spine: COMMON NORMALS: full ROM and supple Chest: COMMONS NORMALS: normal inspection of the chest and normal palpation of entire chest wall Resp: COMMON NORMALS: normal respiratory effort, No retractions, No use of accessory muscles and clear to auscultation bilaterally AUSCULTATION: clear to auscultation bilaterally Cardio: COMMON NORMALS: regular rate, regular rhythm and No murmurs present (Cardio) RATE: regular rate RHYTHM: regular rhythm GI: COMMON NORMALS: Normal to inspection, nondistended, normoactive bowel sounds present, Soft to palpation, non-tender and no masses PALPATION: Yes Soft to palpation Extremity: COMMON NORMALS: normal to inspection and full ROM Neuro: COMMON NORMALS: patient oriented x3, moves all extremities and no focal motor deficits Psych: COMMON NORMALS: mental status grossly normal, Normal thought process present and cooperative THOUGHT PROCESS: Normal thought process present Skin: COMMON NORMALS: no rashes or lesions noted and no wounds GENERAL SKIN EXAM: no rashes or lesions noted Course Vital Signs: Vital signs: Vital Signs Temperature 97.9 F 12/31/21 03:08 Pulse Rate 69 12/31/21 05:57 Respiratory Rate 15 12/31/21 05:57 Blood Pressure 157/94 12/31/21 05:57 Pulse Oximetry 99 12/31/21 05:57 Oxygen Delivery Me thod 12/31/21 03:08 MDM - Chest Pain Medical Decision Making Patient presents here with cough congestion along with chest pain or chest pains atypical she did have elevated D-dimer CT angio was negative patient's troponins here are negative as well she is well-appearing here and stable for discharge she is to follow-up with PCP and return if worsening. Lab Data : 12/31/21 03:18 12/31/21 03:18 Radiology Impressions Chest X-Ray 12/31/21 03:11 IMPRESSION: No acute findings. Chest CTA 12/31/21 03:43 IMPRESSION: 1. No pulmonary embolus or other acute pathology in the chest. 2. Hepatomegaly with slight increased attenuation, suggestive of fatty infiltration. Laboratory Results WBC 10.5 10^3/uL (4.0-10.0) H 12/31/21 03:18 RBC 4.60 10^6/uL (4.1-5.3) 12/31/21 03:18 Hgb 12.4 g/dL (11.5-15.3) 12/31/21 03:18 Hct 40.1 % (37.0-47.0) 12/31/21 03:18 MCV 87.2 fl (81-99) 12/31/21 03:18 MCH 27.0 pg (28.0-34.0) L 12/31/21 03:18 MCHC 30.9 g/dL (30.0-36.0) 12/31/21 03:18 RDW 15.8 % (12.1-15.1) H 12/31/21 03:18 Plt Count 307 10^3/cmm (130-400) 12/31/21 03:18 MPV 8.9 fL (7.4-10.4) 12/31/21 03:18 Neut % (Auto) 71.4 % 12/31/21 03:18 Lymph % (Auto) 20.9 % 12/31/21 03:18 Garrett % (Auto) 5.6 % 12/31/21 03:18 Eos % (Auto) 0.5 % 12/31/21 03:18 Baso % (Auto) 0.6 % 12/31/21 03:18 Neut # (Auto) 7.48 10^3/uL (1.8-7.7) 12/31/21 03:18 Lymph # (Auto) 2.2 10^3/uL (0.8-4.8) 12/31/21 03:18 Garrett # (Auto) 0.6 10^3/uL (0.2-0.9) 12/31/21 03:18 Eos # (Auto) 0.1 10^3/uL (0.0-0.8) 12/31/21 03:18 Baso # (Auto) 0.1 10^3/uL (0.0-0.1) 12/31/21 03:18 Nucleated RBC % (auto) 0 % 12/31/21 03:18 Nucleated RBCs # 0.0 /100WBC 12/31/21 03:18 D-Dimer 0.74 ug/mIFEU (0-0.59) H 12/31/21 03:18 Sodium 139 mmol/L (136-145) 12/31/21 03:18 Potassium 4.5 mmol/L (3.5-5.1) 12/31/21 03:18 Chloride 103 mmol/L (98-107) 12/31/21 03:18 Carbon Dioxide 26 mmol/L (22-29) 12/31/21 03:18 Anion Gap 14.5 (5-19) 12/31/21 03:18 BUN 12 mg/dL (6-20) 12/31/21 03:18 Creatinine 0.7 mg/dL (0.5-0.9) 12/31/21 03:18 GFR Calculation 86.9 mL/min (90-130) L 12/31/21 03:18 Glucose 119 mg/dL (65-115) H 12/31/21 03:18 Calculated Osmolality 289 mOsm/kg (285-295) 12/31/21 03:18 Calcium 9.2 mg/dL (8.5-10.5) 12/31/21 03:18 Total Bilirubin 0.2 mg/dL (0.15-1.2) 12/31/21 03:18 AST 11 U/L (0-32) 12/31/21 03:18 ALT 17 U/L (0-33) 12/31/21 03:18 Alkaline Phosphatase 82 U/L (35-105) 12/31/21 03:18 Troponin T Baseline 6 ng/L (0-10) 12/31/21 03:18 Troponin T 120 Minute 6.00 ng/L (0-10) 12/31/21 05:05 Delta Troponin T 0 ABS# (0-10) 12/31/21 05:05 NT-Pro-B Natriuret Pep 47 pg/mL (0-125) 12/31/21 03:18 Total Protein 7.0 g/dL (6.6-8.7) 12/31/21 03:18 Albumin 4.0 g/dL (3.5-5.2) 12/31/21 03:18 Globulin 3.0 g/dL (1.3-4.6) 12/31/21 03:18 EKG Data EKG 1: I personally reviewed and interpreted this EKG as follows: EKG interpretation date: 12/31/21 EKG interpretation time: 03:12 Interpretation: nsr hr [address] or t wave abnormalities qrs 90 qtc 395 Discharge Plan Discharge Patient Disposition: Home Clinical Impression: Upper respiratory infection Chest pain Qualifiers: Chest pain type: unspecified Qualified Code(s): R07.9 - Chest pain, unspecified Condition: Stable Prescriptions: No Action pantoprazole 40 mg tablet,delayed release (DR/EC) 40 mg PO DAILY Symbicort 80-4.5 mcg/actuation HFA aerosol inhaler 2 puff INHALATION BID PRN (Reason: Shortness Of Breath) alprazolam [Xanax] 0.25 mg tablet 0.25 mg PO DAILY PRN (Reason: anxiety) fluticasone propionate [Flonase Allergy Relief] 50 mcg/actuation spray,suspension 1 spray INTRANASAL QDAY PRN (Reason: Nasal Congestion) albuterol sulfate [ProAir HFA] 90 mcg/actuation HFA aerosol inhaler 2 puff INHALATION Q6H PRN (Reason: shortness of breath or wheezing) Qty: 8.5 0RF sucralfate 1 gram tablet 1 g PO BID (DME) Spectrum AFO ankle brace See Rx Instructions .Route .MEDSUPPLY Qty: 1 0RF Rx Instructions: As directed aspirin 81 mg tablet,chewable 81 mg PO DAILY Qty: 90 3RF metoprolol tartrate 100 mg tablet 100 mg PO BID Qty: 180 3RF cyclobenzaprine 5 mg tablet 5 mg PO BID PRN (Reason: muscle spasm) Qty: 20 0RF celecoxib 100 mg capsule 100 mg PO BID PRN (Reason: pain) Qty: 20 0RF Medrol ([place]) 4 mg tablets,dose pack See Rx Instructions .ROUTE .COMPLEX Qty: 21 0RF Rx Instructions: orally per package directions Discharge Orders: Discharge ED (Routine); Ordered 12/31/21 Ordered By: Joan Hays Referrals: Doreen Frost PA [Primary Care Provider] - 1-3 days Discharge Diet: Advance as tolerated Discharge Activity: Resume usual activity Patient Instructions: Chest Pain (ED) Coding Level of Care Code ED Classifier for Chg Fwd Exam Comprehensive
[2021-12-31 03:24] LABS: Basophils # 0.1 10^3/uL (0.0-0.1); Basophils % 0.6 %; Eosinophils # 0.1 10^3/uL (0.0-0.8); Eosinophils % 0.5 %; Hematocrit 40.1 % (37.0-47.0); Hemoglobin 12.4 g/dL (11.5-15.3); Lymphocytes # 2.2 10^3/uL (0.8-4.8); Lymphocytes % 20.9 %; Mean Corpuscular HGB Conc 30.9 g/dL (30.0-36.0); Mean Corpuscular Volume 87.2 fl (81-99); Mean Platelet Volume 8.9 fL (7.4-10.4); Monocytes # 0.6 10^3/uL (0.2-0.9); Monocytes % 5.6 %; Neutrophils # 7.48 10^3/uL (1.8-7.7); Neutrophils % 71.4 %; Nucleated Red Blood Cells % 0 %; Platelet Count 307 10^3/cmm (130-400); Red Cell Distribution Width 15.8 % (12.1-15.1); White Blood Count 10.5 10^3/uL (4.0-10.0)
[2021-12-31] MEDS: aspirin 81 mg Chew Tablet 324 MG PO (03:29)
[2021-12-31 03:38] VITALS: BP 151/96; PULSE 74; RESP 21; O2SAT 98
[2021-12-31 03:42] LABS: D Dimer 0.74 ug/mIFEU (0-0.59)
--- NOTE | 2021-12-31 03:43 | CTR_ITS ---
PROCEDURE INFORMATION: Exam: CTA Chest With Contrast Exam date and time: 12/31/2021 4:00 AM Age: 56 years old Clinical indication: Pain and abnormal findings; Abnormal diagnostic tests; Elevated d-dimer; Shortness of breath; Chest pressure; Patient HX: C/O chest pain with SOB. Elevated d dimer. TECHNIQUE: Imaging protocol: Computed tomographic angiography of the chest with contrast. 3D rendering (Not supervised by radiologist): MIP and/or 3D reconstructed images were created by the technologist. Radiation optimization: All CT scans at this facility use at least one of these dose optimization techniques: automated exposure control; mA and/or kV adjustment per patient size (includes targeted exams where dose is matched to clinical indication); or iterative reconstruction. Contrast material: OMNI 350; Contrast volume: 157 ml; Contrast route: INTRAVENOUS (IV); COMPARISON: CT angio chest PE protcl [id number] 06/21/2019 9:41 PM RADIATION DOSE METRICS: Total DLP (mGy-cm): 932.91 FINDINGS: Pulmonary arteries: Normal. No pulmonary emboli. Aorta: Unremarkable. No aortic aneurysm. No aortic dissection. Lungs: No consolidation. There is a tiny calcified granuloma in the left upper lobe. Pleural spaces: Unremarkable. No pneumothorax. No pleural effusion. Heart: Unremarkable. No cardiomegaly. No pericardial effusion. Lymph nodes: Unremarkable. No enlarged lymph nodes. Liver: Enlarged liver with slightly increased attenuation. No discrete mass lesion seen. Bones/joints: Degenerative changes of the spine seen. Soft tissues: Unremarkable. CT/CT angio chest PE protcl [id number] IMPRESSION: 1. No pulmonary embolus or other acute pathology in the chest. 2. Hepatomegaly with slight increased attenuation, suggestive of fatty infiltration.
[2021-12-31 03:47] LABS: Troponin(5th) Baseline 6 ng/L (0-10)
[2021-12-31 03:58] LABS: Alanine Aminotransferase 17 U/L (0-33); Alkaline Phosphatase 82 U/L (35-105); Anion Gap 14.5 (5-19); Aspartate Amino Transferase 11 U/L (0-32); Blood Urea Nitrogen 12 mg/dL (6-20); Calcium 9.2 mg/dL (8.5-10.5); Carbon Dioxide 26 mmol/L (22-29); Chloride 103 mmol/L (98-107); Glomerular Filtration Rate 86.9 mL/min (90-130); Glucose 119 mg/dL (65-115); NT Pro B Type Natriuretic Pept 47 pg/mL (0-125); Osmolality Calculated 289 mOsm/kg (285-295); Potassium 4.5 mmol/L (3.5-5.1); Sodium 139 mmol/L (136-145); Total Bilirubin 0.2 mg/dL (0.15-1.2)
[2021-12-31] MEDS: iohexol 350 mg/mL 100 mL Btl IV ×2 (04:22→04:23)
[2021-12-31 04:23] VITALS: BP 143/80; PULSE 87; RESP 19; O2SAT 100
--- NOTE | 2021-12-31 05:05 | ECG_ITS ---
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 Measurements Intervals [place] Rate: 70 P: 52 NC: 190 QRS: -5 QRSD: 90 T: 61 QT: 378 QTc: 410 Interpretive Statements SINUS RHYTHM Compared to ECG 12/31/2021 03:12:45 No significant changes Electronically Signed On 12-31-2021 17:20:45 CDT by Natanael Alberts M.D. [id number]
[2021-12-31 05:08] VITALS: BP 148/78; PULSE 74; RESP 16; O2SAT 97
[2021-12-31 05:57] VITALS: BP 157/94; PULSE 69; RESP 15; O2SAT 99
[2021-12-31 05:57] LABS: Troponin 5 2HR Delta 0 ABS# (0-10)
== END 2021-12-31 05:58 | disposition home or self-care (01) ==
PROVIDERS: Emergency Provider Emergency Medicine; PCP Physician Assistant
DX: R07.9 Chest pain, unspecified (principal); J06.9 Acute upper respiratory infection, unspecified; Z79.82 Long term (current) use of aspirin
CPT/HCPCS: 71045; 71275; 80053; 83880; 84484; 85025; 85378; 93005; 96374; 99285; J0360; Q9967

== ENCOUNTER 2022-01-30 14:46 | Outpatient (CLI) | payer OTHER, SELFPAY ==
--- NOTE | 2022-01-30 14:51 | US_ITS ---
WS: [id number] LEFT 3D TOMOSYNTHESIS DIGITAL MAMMOGRAPHY WITH CAD CLINICAL INFORMATION: BREAST ASYMMETRY HISTORY: Six-month follow-up COMPARISON: August 07, 2021 TECHNIQUE: 3 views of the left breast were obtained. FINDINGS: Scattered fibroglandular densities of the left breast. Dense asymmetry deep to the areola unchanged in appearance. No significant interval changes. Ultrasound described below. ULTRASOUND BREAST LEFT TECHNIQUE: Ultrasound left breast focused area of concern. CLINICAL INFORMATION: BREAST ASYMMETRY COMPARISON: August 07, 2021 FINDINGS: 6 month follow-up Ultrasound LEFT breast directed to the areola. Again seen are incidental dilated ducts compatible with ductal ectasia. Hyperechoic focus compatible with incidental lipoma or hematoma measuring 5.2 x 2.8 x 4.0 mm. Findings have a benign appearance. Recommend return to annual screening mammography. IMPRESSION: US/US breast LT limited* [id number] BI-RADS: 2-Benign FOLLOW UP: 1 Year Follow-up Recommend return to annual screening mammography. Dictated By: Dima Gallo MD Signed By: Dima Gallo MD Signed Date/Time: 0 02/01/22 1050
== END 2022-01-30 14:47 | disposition home or self-care (01) ==
LOC: RAD 14:47
PROVIDERS: PCP Physician Assistant; Visit Provider Physician Assistant
DX: N64.89 Other specified disorders of breast (principal)
CPT/HCPCS: 76642; 77061

== ENCOUNTER 2023-08-27 08:51 | Outpatient (CLI) | payer OTHER, SELFPAY ==
--- NOTE | 2023-08-27 08:53 | MM_ITS ---
WS: [id number] Bilateral screening 3D tomosynthesis digital mammogram, 08/27/2023 Clinical Data: SCREENING Comparison: 12/30/2021, 08/07/2021, 07/01/2021, 04/26/2020, 07/19/2018, 03/12/2017, 09/08/2016, 08/24/2016, 09/05/2014 05/04/2013, 03/14/2009. Findings: The breast parenchymal pattern shows fibroglandular tissue. No spiculated masses or clustered calcifi cations are seen. There are no secondary signs of carcinoma. There are lymph nodes in both axilla. Impression: 1. Negative bilateral mammogram unchanged. 2. Recommend annual screening mammograms. MM/[place] [id number] BIRADS: 1-Negative FOLLOW UP: 1 Year Follow-up The CAD waterway traffic checker was used.
== END 2023-08-27 08:52 | disposition home or self-care (01) ==
LOC: RAD 08:51
PROVIDERS: PCP Physician Assistant; Visit Provider Physician Assistant
DX: Z12.31 Encounter for screening mammogram for malignant neoplasm of breast (principal)
CPT/HCPCS: 77063; 77067

== ENCOUNTER → 2024-12-18 13:54 | Outpatient (BNVA) | payer OTHER, SELFPAY | PROVIDERS: PCP Physician Assistant; Visit Provider Registered Nurse Neonatal Intensive Care | DX: R05.9 Cough, unspecified (principal) | CPT/HCPCS: 71046 ==

== ENCOUNTER 2025-01-23 08:05 | Outpatient (CLI) | payer OTHER, SELFPAY ==
--- NOTE | 2025-01-23 08:16 | MM_ITS ---
WS: [id number] BILATERAL 3D TOMOSYNTHESIS DIGITAL SCREENING MAMMOGRAPHY WITH CAD CLINICAL INFORMATION: SCREENING HISTORY: Screening mammogram. No current complaints. COMPARISON: 2023 TECHNIQUE: Bilateral CC and MLO views. FINDINGS: Scattered fibroglandular densities bilaterally. No suspicious focal mass, asymmetry, calcifications, or architectural distortion. No evidence of malignancy. Stable intramammary lymph nodes LEFT breast. MM/MM scr BI tomosynthesis [id number] IMPRESSION: DENSITY: There are scattered areas of fibroglandular density. BI-RADS: 2 - Benign. FOLLOW UP: 1 Year Follow-up Recommend return to annual screening mammography.
== END 2025-01-23 08:06 | disposition home or self-care (01) ==
LOC: RAD 08:05
PROVIDERS: PCP Physician Assistant; Visit Provider Physician Assistant
DX: Z12.31 Encounter for screening mammogram for malignant neoplasm of breast (principal); R92.323 Mammographic fibroglandular density, bilateral breasts; R59.9 Enlarged lymph nodes, unspecified
CPT/HCPCS: 77063; 77067

== ENCOUNTER → 2025-02-11 11:24 | Outpatient (BNVA) | payer OTHER, SELFPAY | PROVIDERS: PCP Physician Assistant | DX: R39.89 Other symptoms and signs involving the genitourinary system (principal); R30.0 Dysuria | CPT/HCPCS: 81000; 87086 ==